=== PATIENT | male | born 1940 | race Caucasian/White ===

== ENCOUNTER 2016-10-25 18:50 | Observation (INO) | payer MEDICARE, SELFPAY ==
[~2016-10-25] VITALS: Ht 167.6 cm; Wt 49.9 kg
[2016-10-25 23:16] LABS: BUN/CREATININE RATIO 32 (0-10)
[2016-10-25 23:21] LABS: HEMOGLOBIN 11.5 gm/dl (14.0-17.5); RED BLOOD COUNT 3.42 M/UL (4.20-5.50); WHITE BLOOD COUNT 5.1 K/UL (4.5-11.0)
[2016-10-26] MEDS ORDERED: LORTAB 5-325 M1 EACH PO (06:37)
[2016-10-26] MEDS ORDERED: METHOTREXATE2.5 MG PO (06:38)
[2016-10-26] MEDS ORDERED: FOSAMAX70 MG PO (06:38)
[2016-10-26] MEDS ORDERED: PLAQUENIL 200200 MG PO (06:39)
[2016-10-26] MEDS ORDERED: FOLIC ACID1 MG PO (06:40)
[2016-10-26] MEDS ORDERED: NEURONTIN 100100 MG PO (06:41)
[2016-10-26] MEDS ORDERED: NEURONTIN 300300 MG PO (06:42)
[2016-10-26] MEDS ORDERED: PLAVIX 75 MG TA75 MG PO (06:42)
[2016-10-26] MEDS ORDERED: TOPROL XL 25 MG25 MG PO (06:43)
[2016-10-26] MEDS ORDERED: LIPITOR TAB 2020 MG PO (06:43)
[2016-10-26] MEDS ORDERED: ADVAIR 500-501 EACH INH (06:44)
[2016-10-26] MEDS ORDERED: SPIRIVA18 MCG INH (06:45)
[2016-10-27 06:58] LABS: RED BLOOD COUNT 2.91 M/UL (4.20-5.50); WHITE BLOOD COUNT 2.9 K/UL (4.5-11.0)
[2016-10-28] MEDS ORDERED: MEDROL DOSEPAK 24 MG PO (15:41)
[2016-10-28] MEDS ORDERED: AUGMENTIN 875-1 EACH PO (15:43)
== END 2016-10-28 16:30 | disposition home or self-care (01) ==
LOC: ER1 18:50 → ZEROF 10-26 00:27 → MED SURG 4 10-26 00:27
PROVIDERS: Family Medicine; Internal Medicine; ADMIT Internal Medicine
DX: J18.9 Pneumonia, unspecified organism (principal); D61.818 Other pancytopenia; J44.9 Chronic obstructive pulmonary disease, unspecified; M06.9 Rheumatoid arthritis, unspecified; R09.02 Hypoxemia; E78.5 Hyperlipidemia, unspecified; Z87.891 Personal history of nicotine dependence; Z79.2 Long term (current) use of antibiotics; Z79.891 Long term (current) use of opiate analgesic; Z79.899 Other long term (current) drug therapy; Z98.890 Other specified postprocedural states; Z99.81 Dependence on supplemental oxygen
CPT/HCPCS: 36415; 71020; 80053; 81001; 83605; 83880; 84484; 85025; 85027; 87040; 87086; 93005; 94640; 94664; 96365; 96366; 96375; 96376; 99285; G0378; J1956; J2920; J7509; J8610

== ENCOUNTER 2021-05-26 17:01 | Emergency (ER) | payer MEDICARE ==
[~2021-05-26 17:01] MED LIST: ADVAIR 500-501 EACH INH; AUGMENTIN 875-1 EACH PO; DILTIAZEM 24HR240 M1 PO; ELIQUIS 5 MG TAB5 MG PO; FOLIC ACID1 MG PO; FOSAMAX70 MG PO; HYDROCODON-ACE1 EAC6 PO; IPRAT-ALBUT 0.5-3 ML INH; LIPITOR TAB 2020 MG PO; MEDROL DOSEPAK 24 MG PO; MEDROL4 MG PO; METHOTREXATE2.5 MG PO; NEURONTIN 100100 MG PO; NEURONTIN 300300 MG PO; PLAQUENIL 200200 MG PO; PLAVIX 75 MG TA75 MG PO; PROAIR HFA8.5 GM INH; SPIRIVA18 MCG INH; TOPROL XL 25 MG25 MG PO; ZYVOX 600 MG T600 MG PO
[2021-05-26 19:21] LABS: HEMOGLOBIN 11.5 gm/dl (14.0-17.5); RED BLOOD COUNT 3.57 M/UL (4.20-5.50); WHITE BLOOD COUNT 3.1 K/UL (4.5-11.0)
[2021-05-26 19:37] LABS: BUN/CREATININE RATIO 26 (0-10)
== END 2021-05-26 20:14 | disposition home or self-care (01) ==
LOC: ER1 17:01
PROVIDERS: Family Medicine
DX: K62.3 Rectal prolapse (principal); K62.5 Hemorrhage of anus and rectum; J44.9 Chronic obstructive pulmonary disease, unspecified; M06.9 Rheumatoid arthritis, unspecified; F17.200 Nicotine dependence, unspecified, uncomplicated
CPT/HCPCS: 80053; 82270; 83690; 85025; 93005; 99283

== ENCOUNTER → 2021-06-29 | Day surgery (SDC) | payer MEDICARE ==
[~2021-06-29] MED LIST changes: +ARAVA20 MG PO; +CALCIUM 600 +1 EA12 PO; +ELIQUIS5 MG PO; +TRELEGY ELLIPT1 EACH INH; +TYLENOL EXTRA500 MG PO
== END | disposition home or self-care (01) ==
LOC: OR 06:07
DX: K64.8 Other hemorrhoids (principal); J44.9 Chronic obstructive pulmonary disease, unspecified; F17.210 Nicotine dependence, cigarettes, uncomplicated; M19.90 Unspecified osteoarthritis, unspecified site; G89.29 Other chronic pain; I10 Essential (primary) hypertension; I48.0 Paroxysmal atrial fibrillation; Z85.828 Personal history of other malignant neoplasm of skin; Z79.01 Long term (current) use of anticoagulants; Z79.899 Other long term (current) drug therapy
CPT/HCPCS: 94664; J3010; J7030; J7040; J7120

== ENCOUNTER 2021-09-28 13:58 | Inpatient (IN) | payer MEDICARE ==
[~2021-09-28] VITALS: Ht 152.4 cm; Wt 51.5 kg
[2021-09-28 15:11] LABS: HEMOGLOBIN 9.4 gm/dl (14.0-17.5); RED BLOOD COUNT 2.97 M/UL (4.20-5.50); WHITE BLOOD COUNT 3.1 K/UL (4.5-11.0)
[2021-09-28 16:05] LABS: BUN/CREATININE RATIO 30 (0-10)
[2021-09-29 06:27] LABS: HEMOGLOBIN 9.3 gm/dl (14.0-17.5); RED BLOOD COUNT 2.87 M/UL (4.20-5.50)
[2021-09-29 06:51] LABS: WHITE BLOOD COUNT 2.3 K/UL (4.5-11.0)
[2021-09-29 06:56] LABS: BUN/CREATININE RATIO 29 (0-10)
[2021-09-30 02:28] LABS: HEMOGLOBIN 7.9 gm/dl (14.0-17.5); WHITE BLOOD COUNT 2.5 K/UL (4.5-11.0)
[2021-09-30 02:35] LABS: RED BLOOD COUNT 2.45 M/UL (4.20-5.50)
[2021-09-30 03:02] LABS: BUN/CREATININE RATIO 34 (0-10)
[2021-10-01 02:59] LABS: HEMOGLOBIN 7.6 gm/dl (14.0-17.5); RED BLOOD COUNT 2.36 M/UL (4.20-5.50)
[2021-10-01 03:20] LABS: BUN/CREATININE RATIO 41 (0-10)
--- NOTE | 2021-10-01 13:37 | NUR ---
1000- SPOKE WITH PT AND SON RE: CODE STATUS AND DISCHARGE OPTIONS. PT STATES HE DOES NOT WANT ANY KIND OF LIFE SUPPORT, INCLUDING CPR, VENTILATOR OR BIPAP. SON AGREES WITH PT'S DECISION FOR DNR STATUS. EXPLAINED HOSPICE VS. HOME HEALTH FOR DC NEEDS. PT AND UNDERSTAND OPTIONS AND STATE THEY WILL DISCUSS IT WITH PT'S DAUGHTER - TOOTIE - WITH WHOM HE LIVES. CASE MANAGEMENT REFERRAL MADE AND CONSULT DISCUSSED WITH CASE MANAGEMENT. MD NOTIFIED OF PT'S REQUEST FOR DNR AND ORDER PLACED.
[2021-10-02 04:16] LABS: HEMOGLOBIN 6.5 gm/dl (14.0-17.5); RED BLOOD COUNT 2.05 M/UL (4.20-5.50); WHITE BLOOD COUNT 1.5 K/UL (4.5-11.0)
[2021-10-02 04:27] LABS: BUN/CREATININE RATIO 62 (0-10)
[2021-10-02] MEDS ORDERED: PERCOCET 5/325 T1 EA PO (08:06)
--- NOTE | 2021-10-02 16:27 | NUR ---
CALLED REPORT TO LORIE CASAS CHARGE NURSE WITH HOSPICE
[2021-10-04 16:13] LABS: ORGANISM ID Not indicated. (.); SPECIMEN SOURCE Urine (.); STREPTOCOCCUS PNEUMONIAE AG Negative (Negative)
== END 2021-10-02 17:30 | DRG 193 ==
LOC: ER1 13:58 → CDU 18:36 → PROG CARE 09-29 22:20
PROVIDERS: Emergency Medicine; ADMIT Internal Medicine
PROC: B24BZZZ Ultrasonography of Heart with Aorta (ICD-10-PCS; 2021-09-29)
PROC: 30233N1 Transfusion of Nonautologous Red Blood Cells into Peripheral Vein, Percutaneous Approach (ICD-10-PCS; principal; 2021-10-02)
DX: J18.9 Pneumonia, unspecified organism (principal); J96.21 Acute and chronic respiratory failure with hypoxia; J96.22 Acute and chronic respiratory failure with hypercapnia; I50.33 Acute on chronic diastolic (congestive) heart failure; J44.1 Chronic obstructive pulmonary disease with (acute) exacerbation; D61.818 Other pancytopenia; E46 Unspecified protein-calorie malnutrition; I11.0 Hypertensive heart disease with heart failure; I48.0 Paroxysmal atrial fibrillation; Z20.822 Contact with and (suspected) exposure to COVID-19; F17.210 Nicotine dependence, cigarettes, uncomplicated; M54.9 Dorsalgia, unspecified; G89.29 Other chronic pain; M81.0 Age-related osteoporosis without current pathological fracture; R33.9 Retention of urine, unspecified; Z66 Do not resuscitate; N40.1 Benign prostatic hyperplasia with lower urinary tract symptoms; M06.9 Rheumatoid arthritis, unspecified; Z99.81 Dependence on supplemental oxygen; Z98.890 Other specified postprocedural states; Z82.49 Family history of ischemic heart disease and other diseases of the circulatory system; Z85.828 Personal history of other malignant neoplasm of skin; Z79.01 Long term (current) use of anticoagulants; Z68.22 Body mass index [BMI] 22.0-22.9, adult
CPT/HCPCS: ECHO; 0240U; 36415; 36430; 36600; 51702; 71045; 71046; 80048; 80053; 80061; 81001; 82550; 82553; 82803; 83036; 83540; 83550; 83605; 83690; 83735; 83874; 83880; 84132; 84484; 85025; 85027; 85610; 85652; 85730; 86140; 86850; 86900; 86901; 86920; 87040; 87070; 87077; 87086; 87186; 87205; 87278; 87899; 93005; 93306; 94640; 94660; 94664; 94760; 96374; 96375; 96376; 97161; 97166; 99285; J0696; J1756; J1940; J2920; J2930; J3475; P9016; U0002